=== PATIENT | male | born 1955 | race Caucasian/White ===

== ENCOUNTER → 2017-08-13 | Outpatient (CLI) | payer OTHER ==
--- NOTE | 2017-08-15 22:22 | SLEEPCENT ---
DATE OF PROCEDURE: 08/13/2017 ORDERED BY: Kailey Stephenson Nocturnal polysomnography was performed for evaluation of sleep physiology in this patient with a history of excessive somnolence and nonrestorative sleep, comorbidities of hypertension. 7 hours and 41 minutes of data were reviewed. There were 335 minutes of sleep identified. Sleep latency was prolonged at 23 minutes. Rapid eye movement (REM) latency was prolonged at 120 minutes. Sleep architecture was fair with a period of wake between 3:00 and 3:45. There were 3-4 REM cycles appreciated. Overall sleep efficiency was 76.6%. EKG showed sinus rhythm with an average heart rate of 75 beats per minute. EEG showed normal waveforms for awake and sleep stages. There were 65 respiratory events identified of 10 seconds in duration or greater for an apnea-hypopnea index of 11.6. The events were primarily obstructive, not exclusive to sleep stage, more frequent but not exclusive to the supine posture. Arousals from respiratory events occurred 1.3 times per hour and oxygen desaturations were seen into the 80s. Remaining measures of sleep physiology were reasonably normal. IMPRESSION: Obstructive sleep apnea syndrome (G47.33), apnea-hypopnea index 11.6. RECOMMENDATION: The patient should be encouraged to return to the sleep disorder center for pressure therapy. In the interim, alcohol and sedative avoidance should be practiced and caution exercised during the operation of motor vehicles. Copy To: Dr. Infante
== END ==
LOC: M SLEEP 19:51
PROVIDERS: ATTEND Nurse Practitioner Adult Health
DX: G47.33 Obstructive sleep apnea (adult) (pediatric) (principal)

== ENCOUNTER → 2017-09-08 | Outpatient (CLI) | payer OTHER ==
--- NOTE | 2017-09-10 07:45 | SLEEPCENT ---
DATE OF STUDY: 09/08/2017 ORDERED BY: Kailey Stephenson Nocturnal polysomnography was performed for the titration of pressure therapy in this patient with obstructive sleep apnea syndrome and apnea-hypopnea index of 11.6. For testing, a ResMed AirTouch full face mask of medium size was used and 4 cm of water pressure were applied to the circuit and the lights were extinguished. 7 hours and 32 minutes of data were reviewed. There were 364 minutes of sleep identified. Sleep latency was mildly prolonged at 15 minutes, rapid eye movement (REM) latency likewise at 106 minutes. Sleep architecture was good with 3 REM cycles appreciated. Overall sleep efficiency was 81.6%. The electrocardiogram (EKG) showed an irregular supraventricular rhythm with an average heart rate of 66 beats per minute. Electroencephalogram (EEG) showed normal waveforms for awake and sleep. Best pressure for palliation of respiratory events was 10 cm, with which the patient slept through REM without respiratory event or oxygen desaturation in the supine posture. Some limb activity was noted, but arousals were few and remaining measures of sleep physiology were normal. IMPRESSION: Obstructive sleep apnea syndrome (G47.33). RECOMMENDATION: Nightly use of pressure therapy at 10 cm of water.
== END ==
LOC: M SLEEP 19:54
PROVIDERS: ATTEND Nurse Practitioner Adult Health
DX: G47.33 Obstructive sleep apnea (adult) (pediatric) (principal)

== ENCOUNTER 2019-03-31 23:04 | Emergency (ER) | payer OTHER ==
[~2019-03-31] VITALS: Ht 175.3 cm; Wt 97.7 kg
[2019-03-31 23:05] VITALS: BP 173/82
[2019-03-31] MEDS ORDERED: ACET-841 PO (23:09)
[2019-03-31] MEDS ORDERED: LOSA100T50 PO (23:09)
[2019-03-31] MEDS ORDERED: EQ I1CAP PO (23:09)
[2019-03-31] MEDS ORDERED: CART240C3 PO (23:09)
[2019-03-31] MEDS ORDERED: KETOROLAC 30 MG/ML VIAL (J1885) IV ONE (23:30)
[2019-04-01] MEDS ORDERED: NS 1,000 ML IV ONE (00:30)
[2019-04-01] MEDS ORDERED: TAMSULOSIN 0.4 MG CAP PO ONE (00:30)
[2019-04-01 00:31] LABS: BASO # 0.1 10^3/uL (0.0-0.2); BASO % 0.4 % (0.0-1.0); EOS # 0.1 10^3/uL (0.0-0.50); EOS % 0.9 % (0.0-3.0); HEMATOCRIT 41.2 % (42.0-52.0); HEMOGLOBIN 14.5 g/dl (13.5-17.5); LYMPH # 3.6 10^3/uL (1.5-4.5); LYMPH % 28.3 % (24.0-44.0); MEAN CORPUSCULAR HEMOGLOBIN 32.5 pg (27.0-33.0); MEAN CORPUSCULAR HGB CONC 35.2 g/dl (32.0-36.5); MEAN CORPUSCULAR VOLUME 92.4 fl (80.0-96.0); MONO % 7.6 % (0.0-5.0); NEUTROPHILS # 7.9 10^3/uL (1.8-7.7); NEUTROPHILS % 62.3 % (36.0-66.0); PLATELET COUNT, AUTOMATED 267 10^3/uL (150-450); RED BLOOD COUNT 4.46 10^6/uL (4.30-6.10); WHITE BLOOD COUNT 12.7 10^3/uL (4.0-10.0)
--- NOTE | 2019-04-01 00:40 | REPVR ---
EXAM: CT Abdomen and Pelvis Without Contrast EXAM DATE/TIME: 03/31/2019 11:20 PM CLINICAL HISTORY: 64 years old, male; Abdominal pain; Flank; Right; Additional Info: flank pain TECHNIQUE: Imaging protocol: Axial computed tomography images of the abdomen and pelvis without contrast. Coronal and sagittal reformatted images were created and reviewed. Radiation optimization: All CT scans at this facility use at least one of these dose optimization techniques: automated exposure control; mA and/or kV adjustment per patient size (includes targeted exams where dose is matched to clinical indication); or iterative reconstruction. COMPARISON: No relevant prior studies available. FINDINGS: Coronary arteries: Moderate coronary artery calcification. Liver: Fatty infiltration of the liver. Gallbladder and bile ducts: Small gallstones in the gallbladder. No gallbladder wall thickening. No biliary ductal dilatation. Pancreas: Normal. No ductal dilation. Spleen: Normal. No splenomegaly. Adrenals: Normal. No mass. Kidneys and ureters: Mild right hydronephrosis. 3 x 2 mm stone in the distal right ureter. No left hydronephrosis. Punctate nonobstructive stone in the lower pole of left kidney. Stomach and bowel: Colonic diverticulosis without diverticulitis. No abnormal bowel dilatation. No abnormal bowel wall thickening. Appendix: No evidence of appendicitis. Intraperitoneal space: Normal. No free air. No significant fluid collection. Vasculature: Mild calcified atherosclerotic disease. No aortic aneurysm. Lymph nodes: Normal. No enlarged lymph nodes. Bladder: Bladder is decompressed. Reproductive: Prostate is mildly enlarged. Bones/joints: Mild degenerative spine. 4 parallel fixation screws through the right femoral neck. No acute fracture. Soft tissues: Small bilateral inguinal hernias containing fat. No evidence of incarceration. IMPRESSION: 1. Acute obstructive right uropathy with distal ureter stone. 2. Punctate nonobstructive stone in the lower pole of left kidney. 3. Cholelithiasis without evidence of acute cholecystitis. 4. Fatty infiltration of the liver. 5. Prostate is mildly enlarged. 6. Small bilateral inguinal hernias containing fat. 7. Additional findings as described. Electronically signed by: Lukasz Payne On 04/01/2019 00:39:41 AM
[2019-04-01] MEDS ORDERED: FLOM0.4C39 PO (01:47)
[2019-04-01] MEDS ORDERED: KETO10TAB PO (01:47)
[2019-04-01] MEDS ORDERED: KETOROLAC TROMETHAMINE 10 MG TAB PO ONE (02:00)
== END 2019-04-01 01:58 | disposition home or self-care (01) ==
LOC: M ED 23:04
DX: N20.1 Calculus of ureter (principal); R10.9 Unspecified abdominal pain; I10 Essential (primary) hypertension; E78.5 Hyperlipidemia, unspecified; Z79.899 Other long term (current) drug therapy
CPT/HCPCS: 74176; 80047; 81001; 85025; 87086; 96374; 99283; J1885

== ENCOUNTER 2019-06-14 17:14 | Emergency (ER) | payer OTHER ==
[~2019-06-14] VITALS: Ht 175.3 cm; Wt 93.7 kg
[~2019-06-14 17:14] MED LIST: ACET-841 PO; CART240C3 PO; EQ I1CAP PO; FLOM0.4C39 PO; KETO10TAB PO; LOSA100T50 PO
[2019-06-14] MEDS ORDERED: PRAV20TA2 (17:21)
[2019-06-14 17:45] LABS: APPEARANCE, URINE HAZY (CLEAR); BACTERIA, URINE AUTO NEGATIVE (NEGATIVE); BILIRUBIN, URINE AUTO NEGATIVE (NEGATIVE); BLOOD, URINE BLOOD NEGATIVE (NEGATIVE); CALCIUM OXALATE CRYSTALS SMALL; COLOR, URINE YELLOW (YELLOW); GLUCOSE, URINE (UA) AUTO NEGATIVE (NEGATIVE); KETONE, URINE AUTO TRACE mg/dL (NEGATIVE); LEUKOCYTE ESTERASE, URINE AUTO NEGATIVE (NEGATIVE); NITRITE, URINE AUTO NEGATIVE (NEGATIVE); PROTEIN, URINE AUTO NEGATIVE (NEGATIVE); RBC, URINE AUTO 1 /HPF (0-3); SPECIFIC GRAVITY URINE AUTO 1.029 (1.002-1.035); SQUAMOUS EPITHELIAL CELL UR AU 0 /HPF (0-6); UROBILINOGEN, URINE AUTO 0.2 mg/dL (0.0-2.0); WBC, URINE AUTO 0 /HPF (0-3)
[2019-06-14] MEDS ORDERED: NS 1,000 ML IV ONE (17:45)
[2019-06-14] MEDS ORDERED: KETOROLAC 30 MG/ML VIAL (J1885) IV ONE (17:45)
[2019-06-14 18:31] LABS: BASO % 0.5 % (0.0-1.0); EOS # 0.2 10^3/uL (0.0-0.5); EOS % 2.5 % (0.0-3.0); HEMATOCRIT 43.2 % (42.0-52.0); HEMOGLOBIN 14.4 g/dl (13.5-17.5); LYMPH % 33.1 % (24.0-44.0); MEAN CORPUSCULAR HEMOGLOBIN 31.4 pg (27.0-33.0); MEAN CORPUSCULAR HGB CONC 33.3 g/dl (32.0-36.5); MEAN CORPUSCULAR VOLUME 94.3 fl (80.0-96.0); MONO # 0.7 10^3/uL (0.0-0.8); MONO % 11.8 % (0.0-5.0); NEUTROPHILS # 3.2 10^3/uL (1.5-8.5); NEUTROPHILS % 51.9 % (36.0-66.0); PLATELET COUNT, AUTOMATED 237 10^3/uL (150-450); RED BLOOD COUNT 4.58 10^6/uL (4.30-6.10); WHITE BLOOD COUNT 6.1 10^3/uL (4.0-10.0)
--- NOTE | 2019-06-14 18:43 | REPVR ---
EXAM: CT Abdomen and Pelvis Without Contrast EXAM DATE/TIME: 06/14/2019 5:58 PM CLINICAL HISTORY: 64 years old, male; Abdominal pain; Flank; Right; Additional info: RT flank pain/low back pain, HX of renal calculi TECHNIQUE: Imaging protocol: Computed tomography of the abdomen and pelvis without contrast. Radiation optimization: All CT scans at this facility use at least one of these dose optimization techniques: automated exposure control; mA and/or kV adjustment per patient size (includes targeted exams where dose is matched to clinical indication); or iterative reconstruction. COMPARISON: CT ABD PELVIS W/O CONTRAST 03/31/2019 11:28 PM FINDINGS: Lungs: Mild basilar atelectasis. Liver: Normal. No mass. Gallbladder and bile ducts: There are gallstones present. No evidence of cholecystitis demonstrated. Pancreas: Normal. No ductal dilation. Spleen: Normal. No splenomegaly. Adrenals: There is bilateral adrenal hyperplasia. Kidneys and ureters: 4 mm nonobstructive calculus lower pole left kidney, stable. No obstructive ureteral calculi. Previously demonstrated obstructing distal right ureteral calculus no longer visualized. Stomach and bowel: Moderate diverticulosis is present in the distal colon. No diverticulitis. Appendix: No evidence of appendicitis. Intraperitoneal space: Unremarkable. No free air. No significant fluid collection. Vasculature: The aorta demonstrates mild atherosclerotic calcification. Lymph nodes: Unremarkable. No enlarged lymph nodes. Bladder: Unremarkable as visualized. Reproductive: The prostate gland demonstrates moderate hyperplasia. Bones/joints: Mild central spinal stenosis L2-3 and L3-4, and moderate central spinal stenosis L4-5 Status post ORIF right hip. Soft tissues: Bilateral inguinal hernias. IMPRESSION: 1. There are gallstones present. No evidence of cholecystitis demonstrated. 2. There is bilateral adrenal hyperplasia. 3. 4 mm nonobstructive calculus lower pole left kidney, stable. No obstructive ureteral calculi. Previously demonstrated obstructing distal right ureteral calculus no longer visualized. 4. Moderate diverticulosis is present in the distal colon. No diverticulitis. 5. Moderate prostatic hyperplasia. Electronically signed by: Km Chiu On 06/14/2019 18:43:34 PM
[2019-06-14 19:04] VITALS: BP 120/72
[2019-06-14] MEDS ORDERED: KETO10TAB PO (19:36)
[2019-09-08] MEDS ORDERED: CYCL10TA PO (22:14)
== END 2019-06-14 19:53 | disposition home or self-care (01) ==
LOC: M ED 17:14
DX: M54.5 Low back pain (principal); N20.0 Calculus of kidney; I10 Essential (primary) hypertension; E78.5 Hyperlipidemia, unspecified; Z79.899 Other long term (current) drug therapy
CPT/HCPCS: 74176; 80047; 81001; 85025; 96361; 96374; 99284; J1885

== ENCOUNTER 2020-07-31 12:13 | Emergency (ER) | payer OTHER ==
[~2020-07-31] VITALS: Ht 175.3 cm; Wt 97.3 kg
[~2020-07-31 12:13] MED LIST changes: +CYCL-707 PO; -EQ I1CAP PO; +IBUP200C89 PO; +PRAV20TA2
[2020-07-31] MEDS ORDERED: IBUP-1114 PO (12:23)
[2020-07-31] MEDS ORDERED: KETOROLAC 60MG 2ML VIAL IM ONE (12:45)
--- NOTE | 2020-07-31 13:05 | REP ---
INDICATION: pain with movement. COMPARISON: None. TECHNIQUE: Three views. FINDINGS: The right glenohumeral and acromioclavicular joints are normally aligned. Periarticular soft tissues are unremarkable. No fracture or subluxation is seen. No erosive changes noted. The visualized right hemithorax is unremarkable. IMPRESSION: Negative right shoulder radiographs. <Electronically signed by Daniel Mireles > 07/31/20 [id number]
[2020-07-31 13:17] LABS: BASO % 0.5 % (0.0-1.0); EOS # 0.2 10^3/uL (0.0-0.5); EOS % 1.9 % (0.0-3.0); HEMATOCRIT 43.2 % (42.0-52.0); HEMOGLOBIN 14.2 g/dl (13.5-17.5); LYMPH # 2.6 10^3/uL (1.5-5.0); LYMPH % 33.6 % (24.0-44.0); MEAN CORPUSCULAR HEMOGLOBIN 30.6 pg (27.0-33.0); MEAN CORPUSCULAR HGB CONC 32.9 g/dl (32.0-36.5); MEAN CORPUSCULAR VOLUME 93.1 fl (80.0-96.0); MONO # 0.7 10^3/uL (0.0-0.8); MONO % 8.8 % (0.0-5.0); NEUTROPHILS # 4.3 10^3/uL (1.5-8.5); NEUTROPHILS % 54.9 % (36.0-66.0); PLATELET COUNT, AUTOMATED 278 10^3/uL (150-450); RED BLOOD COUNT 4.64 10^6/uL (4.30-6.10); WHITE BLOOD COUNT 7.8 10^3/uL (4.0-10.0)
[2020-07-31 13:48] LABS: ALBUMIN 3.9 GM/DL (3.2-5.2); ALT/SGPT 35 U/L (12-78); BILIRUBIN,DIRECT < 0.1 MG/DL (0.0-0.2); BILIRUBIN,TOTAL 0.4 MG/DL (0.2-1.0); BLOOD UREA NITROGEN 20 MG/DL (7-18); CARBON DIOXIDE LEVEL 25 MEQ/L (21-32); CHLORIDE LEVEL 111 MEQ/L (98-107); CK-MB VALUE MASS 2.9 NG/ML (<3.6); CPK CREATINE PHOSPHOKINASE 313 U/L (39-308); CREATININE FOR GFR 1.15 MG/DL (0.70-1.30); GLOMERULAR FILTRATION RATE > 60.0 (>49); GLUCOSE, FASTING 115 MG/DL (70-100); LIPASE 145 U/L (73-393); MB/CK RELATIVE INDEX 0.93 (< OR =4); POTASSIUM SERUM 3.8 MEQ/L (3.5-5.1); SODIUM LEVEL 143 MEQ/L (136-145); TOTAL PROTEIN 7.4 GM/DL (6.4-8.2); TROPONIN I < 0.02 NG/ML (< 0.10)
[2020-07-31] MEDS ORDERED: CYCL-707 PO (13:52)
[2020-07-31 14:07] VITALS: BP 129/68
--- NOTE | 2020-07-31 19:44 | ECGEPIP ---
[facility] - ED Test Date: 2020-07-31 Pat Name: MARIS LAROSE Department: Room: - Gender: Male [employer]: ZI : [id number] Requested By: OSVALDO SHEA Order Number: [id number] Reading MD: Ludy Bertrand Measurements Intervals [place] Rate: 76 P: 54 ND: 151 QRS: 57 QRSD: 91 T: 50 QT: 385 QTc: 435 Interpretive Statements SINUS RHYTHM MINIMAL ST DEPRESSION NO PRIOR Electronically Signed on 07-31-2020 19:43:30 EST by Ludy Bertrand
== END 2020-07-31 14:27 | disposition home or self-care (01) ==
LOC: M ED 12:13
DX: M25.511 Pain in right shoulder (principal); I10 Essential (primary) hypertension; Z88.8 Allergy status to other drugs, medicaments and biological substances
CPT/HCPCS: 73030; 80048; 80076; 82550; 82553; 83690; 84484; 85025; 93005; 96372; 99284; J1885

== ENCOUNTER 2022-03-28 11:48 | Emergency (ER) | payer MEDICARE, OTHER ==
[~2022-03-28] VITALS: Ht 175.3 cm; Wt 94.1 kg
[~2022-03-28 11:48] MED LIST changes: +IBUP-1114 PO; +LOSA100T45 PO; -LOSA100T50 PO
[2022-03-28] MEDS ORDERED: LOSA50TA28 (11:56)
[2022-03-28] MEDS ORDERED: DILT1CAP5 (11:56)
[2022-03-28] MEDS ORDERED: PRAV20TA2 (11:56)
[2022-03-28] MEDS ORDERED: KETOROLAC 30 MG/ML 1ML VIAL IV ONE (12:20)
[2022-03-28 12:40] LABS: BASO % 0.6 % (0.0-1.0); EOS # 0.1 10^3/uL (0.0-0.5); EOS % 1.9 % (0.0-3.0); HEMOGLOBIN 13.6 g/dl (13.5-17.5); LYMPH # 2.3 10^3/uL (1.5-5.0); LYMPH % 36.4 % (24.0-44.0); MEAN CORPUSCULAR HEMOGLOBIN 31.9 pg (27.0-33.0); MEAN CORPUSCULAR VOLUME 93.7 fl (80.0-96.0); MONO # 0.5 10^3/uL (0.0-0.8); MONO % 8.3 % (2.0-8.0); NEUTROPHILS # 3.3 10^3/uL (1.5-8.5); NEUTROPHILS % 52.5 % (36.0-66.0); PLATELET COUNT, AUTOMATED 270 10^3/uL (150-450); RED BLOOD COUNT 4.27 10^6/uL (4.30-6.10); WHITE BLOOD COUNT 6.4 10^3/uL (4.0-10.0)
[2022-03-28 13:06] LABS: ALBUMIN 3.8 GM/DL (3.2-5.2); BILIRUBIN,DIRECT 0.1 MG/DL (0.0-0.2); BILIRUBIN,TOTAL 0.4 MG/DL (0.2-1.0); TOTAL PROTEIN 7.1 GM/DL (6.4-8.2)
[2022-03-28] MEDS ORDERED: TAMS1CAP17 PO (13:10)
[2022-03-28] MEDS ORDERED: KETO10TAB PO (13:11)
[2022-03-28 13:31] VITALS: BP 145/75
== END 2022-03-28 13:49 | disposition home or self-care (01) ==
LOC: M ED 11:48
DX: N20.1 Calculus of ureter (principal); Z88.8 Allergy status to other drugs, medicaments and biological substances; Z79.899 Other long term (current) drug therapy
CPT/HCPCS: 74176; 80047; 80076; 81001; 83690; 85025; 96374; 99284; J1885

== ENCOUNTER → 2022-04-10 | Outpatient (CLI) | payer OTHER, MEDICARE ==
[~2022-04-10] MED LIST changes: +DILT1CAP5; +LOSA50TA28; +TAMS1CAP17 PO
== END ==
LOC: M PLALAB 08:33
PROVIDERS: ATTEND Nurse Practitioner Women's Health
DX: N20.1 Calculus of ureter (principal)

== ENCOUNTER → 2022-05-01 | Outpatient (CLI) | payer MEDICARE, OTHER ==
[~2022-05-01] MED LIST changes: -DILT1CAP5; +DILT1CAP5 PO; -LOSA50TA28; +LOSA50TA28 PO; +VITMTA PO
== END ==
LOC: M PLAIMG 07:29
PROVIDERS: ATTEND Nurse Practitioner Women's Health
DX: Z01.818 Encounter for other preprocedural examination (principal); N20.1 Calculus of ureter; Z79.899 Other long term (current) drug therapy

== ENCOUNTER → 2022-05-01 | Outpatient (REF) | payer MEDICARE, OTHER ==
[2022-05-01 13:14] LABS: INR 0.84; PROTHROMBIN TIME 11.9 SECONDS (12.7-14.5)
[2022-05-01 13:49] LABS: APPEARANCE, URINE TURBID (CLEAR); BACTERIA, URINE AUTO NEGATIVE (NEGATIVE); BILIRUBIN, URINE AUTO NEGATIVE (NEGATIVE); BLOOD, URINE BLOOD NEGATIVE (NEGATIVE); COLOR, URINE AMBER (YELLOW); GLUCOSE, URINE (UA) AUTO NEGATIVE (NEGATIVE); KETONE, URINE AUTO TRACE mg/dL (NEGATIVE); LEUKOCYTE ESTERASE, URINE AUTO NEGATIVE (NEGATIVE); NITRITE, URINE AUTO NEGATIVE (NEGATIVE); PROTEIN, URINE AUTO NEGATIVE (NEGATIVE); RBC, URINE AUTO 0 /HPF (0-3); SPECIFIC GRAVITY URINE AUTO 1.021 (1.002-1.035); SQUAMOUS EPITHELIAL CELL UR AU 0 /HPF (0-6); UROBILINOGEN, URINE AUTO 0.2 mg/dL (0.0-2.0); WBC, URINE AUTO 0 /HPF (0-3)
== END ==
LOC: M LAB REF 12:04
PROVIDERS: ATTEND Family Medicine
DX: Z01.818 Encounter for other preprocedural examination (principal); Z79.899 Other long term (current) drug therapy

== ENCOUNTER → 2022-05-05 | Outpatient (CLI) | payer MEDICARE, OTHER | LOC: M LABSMTC 10:35 | PROVIDERS: ATTEND Anesthesiology | DX: Z01.812 Encounter for preprocedural laboratory examination (principal); Z20.822 Contact with and (suspected) exposure to COVID-19 ==

== ENCOUNTER 2022-05-10 06:03 | Day surgery (SDC) | payer MEDICARE, OTHER ==
[~2022-05-10] VITALS: Ht 175.3 cm; Wt 96.8 kg
[~2022-05-10 06:03] MED LIST changes: +ALBU8.5H INH; +PRAV20TA2 PO
[2022-05-10] MEDS ORDERED: LR 1,000 ML IV SCH ×2 (06:20→08:35)
[2022-05-10] MEDS ORDERED: ISOVUE-300 61% 50ML VIAL As Ordered ONE (06:41)
[2022-05-10] MEDS ORDERED: ceFAZolin SOD 2 GM in IV 1 EA IV ONE (06:45)
[2022-05-10] MEDS ORDERED: LIDOCAINE 2% 100MG/5ML SDV (FOR ANES.) As Ordered ONE (07:07)
[2022-05-10] MEDS ORDERED: ONDANSETRON 4MG 2ML VIAL As Ordered ONE (07:07)
[2022-05-10] MEDS ORDERED: dexameTHASONE 4 MG/ML 1ML VIAL (J1100 PER 1MG) As Ordered ONE (07:07)
[2022-05-10] MEDS ORDERED: propofoL 200 MG/20 ML VIAL As Ordered ONE (07:07)
[2022-05-10] MEDS ORDERED: ROCURONIUM BROMIDE 50 MG/5 ML VIAL As Ordered ONE (07:08)
[2022-05-10] MEDS ORDERED: fentaNYL 100 MCG/2 ML INJECTION As Ordered ONE (07:11)
[2022-05-10] MEDS ORDERED: MIDAZOLAM INJ 2MG/2ML VIAL (J2250 PER 1MG) As Ordered ONE (07:11)
[2022-05-10] MEDS ORDERED: ONDANSETRON 4MG 2ML VIAL IV PRN (08:35)
[2022-05-10] MEDS ORDERED: fentaNYL 100 MCG/2 ML INJECTION IV PRN (08:35)
[2022-05-10] MEDS ORDERED: oxyCODONE 5MG TAB PO PRN (08:35)
[2022-05-10] MEDS ORDERED: OXYB5TAB10 PO (09:02)
[2022-05-10] MEDS ORDERED: PERCOCET 5MG/325MG TAB PO PRN (09:40)
[2022-05-10] MEDS ORDERED: oxyBUTYnin 5 MG TAB PO PRN (09:40)
[2022-05-10 09:42] VITALS: BP 137/79
[2022-05-15 13:09] LABS: Ca Ox Monohydrate 100 % (.); Size 3x3 mm (.)
== END 2022-05-10 10:01 | disposition home or self-care (01) ==
LOC: M SDC 06:03
PROVIDERS: ATTEND Urology
DX: N13.5 Crossing vessel and stricture of ureter without hydronephrosis (principal); I10 Essential (primary) hypertension; E78.5 Hyperlipidemia, unspecified; N40.0 Benign prostatic hyperplasia without lower urinary tract symptoms; G47.33 Obstructive sleep apnea (adult) (pediatric); Z88.8 Allergy status to other drugs, medicaments and biological substances; Z79.899 Other long term (current) drug therapy
CPT/HCPCS: 52356; 74420; 82365; C1769; C2617; J0690; J1100; J2250; J2405; J3010; Q9967

== ENCOUNTER → 2022-05-19 | Outpatient (CLI) | payer MEDICARE, OTHER ==
[~2022-05-19] MED LIST changes: +OXYB5TAB10 PO
== END ==
LOC: M LABSMTC 10:37
PROVIDERS: ATTEND Anesthesiology
DX: Z01.818 Encounter for other preprocedural examination (principal); Z20.822 Contact with and (suspected) exposure to COVID-19

== ENCOUNTER → 2022-06-10 | Outpatient (CLI) | payer MEDICARE, OTHER | LOC: M LABSMTC 09:26 | PROVIDERS: ATTEND Anesthesiology | DX: Z01.818 Encounter for other preprocedural examination (principal); Z11.52 Encounter for screening for COVID-19 ==

== ENCOUNTER 2022-06-13 11:32 | Day surgery (SDC) | payer MEDICARE, OTHER ==
[~2022-06-13] VITALS: Ht 175.3 cm; Wt 96.1 kg
[~2022-06-13 11:32] MED LIST changes: +NS 1,000 ML IV ONE
[2022-06-13] MEDS ORDERED: LIDOCAINE 2% 100MG/5ML SDV (FOR ANES.) As Ordered ONE (12:26)
[2022-06-13] MEDS ORDERED: propofoL 200 MG/20 ML VIAL As Ordered ONE (12:26)
[2022-06-13 13:31] VITALS: BP 113/58
== END 2022-06-13 13:43 | disposition home or self-care (01) ==
LOC: M OPP 11:32
PROVIDERS: ATTEND Surgery
DX: Z12.11 Encounter for screening for malignant neoplasm of colon (principal); D12.2 Benign neoplasm of ascending colon; D12.3 Benign neoplasm of transverse colon; K57.30 Diverticulosis of large intestine without perforation or abscess without bleeding; Z79.02 Long term (current) use of antithrombotics/antiplatelets; Z79.51 Long term (current) use of inhaled steroids; Z79.899 Other long term (current) drug therapy; Z88.8 Allergy status to other drugs, medicaments and biological substances; G47.30 Sleep apnea, unspecified; Z99.89 Dependence on other enabling machines and devices; I10 Essential (primary) hypertension; E78.5 Hyperlipidemia, unspecified; N40.0 Benign prostatic hyperplasia without lower urinary tract symptoms; Z87.442 Personal history of urinary calculi

== ENCOUNTER → 2022-07-19 | Outpatient (CLI) | payer MEDICARE, OTHER ==
[~2022-07-19] MED LIST changes: -NS 1,000 ML IV ONE; +PROHANCE 279.3MG/ML 15ML VIAL As Ordered ONE; +PROHANCE 279.3MG/ML 5ML VIAL As Ordered ONE
== END ==
LOC: M RAD 08:05
PROVIDERS: ATTEND Family Medicine
DX: H34.239 Retinal artery branch occlusion, unspecified eye (principal)
CPT/HCPCS: 70553; 93880; A9576

== ENCOUNTER → 2025-09-06 | Outpatient (CLI) | payer MEDICARE, OTHER ==
[~2025-09-06] MED LIST changes: -DILT1CAP5 PO; +DILT240C41 PO; -FLOM0.4C39 PO; -LOSA100T45 PO; +LOSA100T46 PO; -OXYB5TAB10 PO; +OXYB5TAB14 PO; -PRAV20TA2; -PRAV20TA2 PO; +PRAV20TA78; +PRAV20TA78 PO; -PROHANCE 279.3MG/ML 15ML VIAL As Ordered ONE; -PROHANCE 279.3MG/ML 5ML VIAL As Ordered ONE; +TAMS-18 PO
== END ==
LOC: M CARPUL 14:38
PROVIDERS: ATTEND Family Medicine
DX: R07.9 Chest pain, unspecified (principal)